=== PATIENT | male | born 1935 | race Caucasian/White ===

== ENCOUNTER 2016-07-20 16:29 | Inpatient (IN) | payer MEDICARE ==
[~2016-07-20] VITALS: Ht 170.2 cm; Wt 64.0 kg
--- NOTE | ~2016-07-20 | CON ---
[place], [place] REPORT OF CONSULTATION NAME: ABDULAZIZ GANN UNIT #: [id number] ROOM: 407 DOCTOR: DANNY DALY ED.D (DENNISE) BIRTHDATE: [birth year] DOS: 07/21/2016 HISTORY OF PRESENT ILLNESS: The patient is an 81-year-old male referred by Dr. Carrington for competency evaluation. At the present time, this patient is on the 4th floor at [facility]. His daughter, Faby Hunt, was present during the interview. The patient states he is and he has 3 daughters. He indicated that his just recently ; however, his daughter indicated she has been for over 7 years. He formerly worked at [employer] and also [employer] in [place]. He has been retired for many years. His family physician is Dr. Jeter. His medical history is pertinent for dementia, myocardial infarction, hypertension, encephalopathy, and a history of coronary artery bypass graft. His medications include aspirin, Cozaar, Risperdal, pravastatin, and Lopressor. He states that he does not drink any alcoholic beverages, but does admit to smoking 1 pack of cigarettes per day. This patient was awake, alert, and oriented to person only. He stated "he is presently here." I asked him where "here" was and he indicated he is at [employer]. I asked him if he was actually in the high school at this point in time and he indicated yes, he was in the [employer] at this time. I did indicate to him that he was actually in [facility] and he seemed somewhat surprised by this information even though he had an IV running and was clearly in a hospital. He has been quite confused for some time according to his daughter. He did not know that it was winter and he actually was aware of the year, but otherwise could answer no questions regarding any type of current events. His short-term memory was quite impaired. His long-term memory was fairly intact, however. In my opinion, it is clearly evident that this patient is not competent to make informed healthcare decisions. His daughter, Faby Hunt, is his power of regulatory attorney for healthcare and, in my opinion, all medical decisions should be made by his daughter. She states she did not bring the power of regulatory attorney into the hospital yet, but will bring it tomorrow. He is scheduled to go to [facility] in [place], [place] once he is discharged from the hospital. He had been living alone and it was clearly evident that he was not capable of living independently or making informed decisions. DIAGNOSIS: AXIS I: Major cognitive disorder -- Alzheimer's disease. Thank you very much for this consult. [place], [place] REPORT OF CONSULTATION NAME: SANJUANITAABDULAZIZ UNIT #: [id number] ROOM: 407 DOCTOR: DANNY DALY ED.D (DENNISE) BIRTHDATE: [birth year] DANNY DALY ED.D CM:CONSTR:REPORT OF CONSULTATION 08/29/16 1411 interface ABDULAZIZ CARRINGTON MD
--- NOTE | ~2016-07-20 | ST ---
[place], [place] EXERCISE STRESS TEST REPORT NAME: ABDULAZIZ GANN [facility] #: [id number] UNIT #: [id number] ROOM: 407 DOCTOR: ALEXANDER CHAMPAGNE MD BIRTHDATE: [birth year] DOS: 07/22/2016 PHARMACOLOGIC STRESS TEST Study was done and is being dictated on 07/22/2016. INDICATIONS: Central chest pain, history of coronary artery disease. PROCEDURE: The patient was given a rapid infusion of regadenoson 0.4 mg intravenously followed by a saline flush. He developed a headache, but had no other significant symptoms. The resting heart rate of 62 antonio to 73. The resting blood pressure of 164/60 fell to 122/64. His resting electrocardiogram showed sinus rhythm with a previous anterior infarction. Aside from tachycardia, no changes occurred with the infusion. IMPRESSION: 1. Well tolerated infusion of regadenoson. 2. Isotope injected 40 seconds after the infusion of regadenoson. Please see the separately dictated imaging report for further details of the patient's myocardial perfusion stress test results. ALEXANDER CHAMPAGNE MD CM:STRESS:EXERCISE STRESS TEST REPORT [id number] ALEXANDER CHAMPAGNE MD
--- NOTE | ~2016-07-20 | CON ---
[place] [employer], [place] REPORT OF CONSULTATION NAME: ABDULAZIZ GANN UNIT #: [id number] ROOM: 407 DOCTOR: ABDULAZIZ CARRINGTON MD BIRTHDATE: [birth year] DOS: 07/21/2016 PSYCHIATRIC CONSULTATION CHIEF COMPLAINT: "I guess I just wore out." HISTORY OF PRESENT ILLNESS: This is an 81-year-old white male who was admitted due to altered mental status. The patient was brought to the ER by his daughter because he was having increased visual hallucinations for several months. He had been seeing bugs and mice infesting his house. He also has been wandering and has been increasingly more confused per family report. His ADLs have been decreasing and he is requiring a lot more assistance in maintaining the house and his own personal state. The patient is becoming so confused that he has required almost 24-hour supervision at times. In the course of coming to the Emergency Room; however, he complained of chest pain and was brought to the medical unit for further stabilization. In discussing the case further with his daughter, she notes that he has also been confabulating stories about fights that are not occurring with family members. He has seen his in the house and his has been for over 6 years. He did state that he sees her sitting there in the room and at times flying over his head. He is becoming increasingly more bizarre as well. PAST MEDICAL HISTORY: Remarkable for hyperlipidemia, hypertension, myocardial infarction and a CABG in 2000. MENTAL STATUS: He is alert and oriented to person, select others place, but not necessarily time. Responses tended to be short and simple and at times very vague and evasive. He confabulated frequently in an order to fill in the gaps. He was guarded and suspicious and would not be forthcoming in discussing with me the state of affairs at home. DIAGNOSIS: Alzheimer dementia. PLAN: I will go ahead and order a vitamin D level along with a serum ammonia. Screening examinations already done by the hospitalist revealed that he has a low therapeutic vitamin B12 level, which I will go ahead and treat with vitamin B12 injection 1000 mcg IM today. I will start him on Exelon patch 4.6 mg a day to see if we can impact positively on ADLs, behavior and cognition. I will also have Dr. Adams Billingsley consulted for competency evaluation. He may benefit from a stay on the [facility] for further stabilization and possible placement into a long-term care facility. [place] [employer], [place] REPORT OF CONSULTATION NAME: ABDULAZIZ GANN UNIT #: [id number] ROOM: 407 DOCTOR: ABDULAZIZ CARRINGTON MD BIRTHDATE: [birth year] ABDULAZIZ CARRINGTON MD CM:CONSTR:REPORT OF CONSULTATION 0926 08/29/16 1413 interface
--- NOTE | ~2016-07-20 | PR ---
[place], [place] PROGRESS NOTE NAME: [facility]IZ [facility]ANN [id number] UNIT #: [id number] ROOM: 407 DOCTOR: ALEXANDER CHAMPAGNE MD BIRTHDATE: [birth year] DOS: 07/22/2016 CARDIOLOGY PROGRESS NOTE SUBJECTIVE: The patient was seen just prior to his stress test in the Cardiology Department. He has felt well overnight. He denies any further chest pain. I did review his echocardiogram yesterday and it does show normal left ventricular size and systolic function with an ejection fraction of 60%. He does have severe left ventricular diastolic relaxation abnormalities. The right ventricle appeared to be enlarged with right ventricular systolic pressures that could not be assessed. Probably moderate mitral insufficiency was seen. PHYSICAL EXAMINATION: VITAL SIGNS: On exam today, his pulse is 62 and regular, blood pressure is 164/60. He weighs 64 kilograms with a body mass index of 22.1. HEENT: Normocephalic, atraumatic. Extraocular muscles are intact. NECK: Supple. His carotids are full without bruits. LUNGS: Respirations are unlabored. Chest is clear to auscultation and percussion. HEART: Has a regular rhythm. He has a fourth heart sound, but no third heart sound. ABDOMEN: Benign. EXTREMITIES: Showed no edema. IMPRESSION: 1. Chest pain on admission, which appears to have resolved. The patient shows no signs of acute coronary ischemia. 2. History of coronary artery disease, status post bypass surgery approximately 15 years ago. 3. Hyperlipidemia. 4. Hypertension. 5. Chronic and ongoing cigarette abuse. 6. Dementia with behavioral abnormalities. PLAN: We will proceed with a pharmacologic stress test today to assess his prognosis. Given his other medical problems, it is assumed we will do our best to manage him medically. We thank the hospitalist group for asking our advice regarding his care. [place], [place] PROGRESS NOTE NAME: ABDULAZIZ GANN [facility] [id number] UNIT #: [id number] ROOM: 407 DOCTOR: ALEXANDER CHAMPAGNE MD BIRTHDATE: [birth year] ALEXANDER CHAMPAGNE MD CM:PNTRANS [id number] ALEXANDER CHAMPAGNE MD 07/23/16 0316 interface
[2016-07-20 16:29] VITALS: BP 189/76
[2016-07-20 17:05] LABS: BASO # 0.1 10*3/uL (0.0-0.1); BASO % 0.6 % (0.0-1.0); EOS # 0.4 10*3/uL (0.0-0.4); EOS % 4.5 % (1.0-4.0); HEMATOCRIT 40.8 % (42.0-52.0); HEMOGLOBIN 13.4 g/dl (14.0-18.0); LYMPH # 1.8 10*3/uL (1.3-4.4); LYMPH % 20.9 % (27.0-41.0); MEAN CELL VOLUME 96.2 fl (80.0-94.0); MEAN CORPUSCULAR HGB 31.6 pg (27.0-31.0); MEAN CORPUSCULAR HGB CONC 32.8 g/dl (33.0-37.0); MONO # 0.7 10*3/uL (0.1-1.0); NEUT # 5.6 10*3/uL (2.3-7.9); NEUT % 65.6 % (47.0-73.0); PLATELET COUNT AUTOMATED 196 10*3/uL (130-400); RED BLOOD COUNT 4.24 10*6/uL (4.50-5.90); WHITE BLOOD COUNT 8.5 10*3/uL (4.8-10.8)
[2016-07-20 17:18] LABS: BUN 25 mg/dl (7-24); CARBON DIOXIDE 26 mmol/L (21-32); CHLORIDE 108 mmol/L (98-107); EST GLOM FILT AFRICAN AMERICAN > 60 ml/min; GLUCOSE 92 mg/dL (65-99); POTASSIUM 4.6 mmol/L (3.5-5.1); SODIUM 143 mmol/L (136-145)
[2016-07-20 18:02] VITALS: BP 173/82
[2016-07-20] MEDS ORDERED: ASPIRIN325 M2 PO (18:33)
[2016-07-20] MEDS ORDERED: PRAVASTATIN SOD20 MG PO (18:33)
[2016-07-20] MEDS ORDERED: Lopressor25 MG PO (18:33)
[2016-07-20] MEDS ORDERED: LOSARTAN POTAS100 M1 PO (18:33)
[2016-07-20 18:41] VITALS: BP 181/73
[2016-07-20 19:06] VITALS: BP 166/76
[2016-07-20 19:12] VITALS: BP 166/66
[2016-07-20 20:00] VITALS: BP 179/53
[2016-07-20] MEDS ORDERED: COZAAR100 MG PO (20:04)
[2016-07-20] MEDS ORDERED: RISPERDAL0.25 MG PO (20:07)
[2016-07-21] VITALS: BP 171/72
[2016-07-21 00:55] LABS: CKMB 2.4 ng/ml (0.5-3.6)
[2016-07-21 04:17] LABS: BILIRUBIN NEGATIVE (NEGATIVE); BLOOD TRACE-INTACT (NEGATIVE); CLARITY SL CLOUDY (CLEAR); COLOR YELLOW (YELLOW); GLUCOSE NEGATIVE (NEGATIVE); KETONE NEGATIVE (NEGATIVE); LEUKO ESTERASE 1+ (NEGATIVE); NITRITE NEGATIVE (NEGATIVE); PROTEIN NEGATIVE (NEGATIVE); UROBILINOGEN 0.2 E.U./dl (0.2-1.0)
[2016-07-21 04:25] LABS: BACTERIA 2+; URINE REFLEX COMMENT YES (NO); WBC 31-40 wbc/hpf (0-5)
[2016-07-21 05:22] LABS: URINE AMPHETAMINES < 1000 (1000ng/ml); URINE BARBITURATES < 200 (200ng/ml); URINE COCAINE < 300 (300ng/ml)
[2016-07-21 05:59] LABS: BASO # 0.1 10*3/uL (0.0-0.1); BASO % 0.9 % (0.0-1.0); EOS # 0.4 10*3/uL (0.0-0.4); EOS % 5.5 % (1.0-4.0); HEMATOCRIT 35.6 % (42.0-52.0); HEMOGLOBIN 11.5 g/dl (14.0-18.0); LYMPH # 1.5 10*3/uL (1.3-4.4); LYMPH % 22.3 % (27.0-41.0); MEAN CELL VOLUME 96.7 fl (80.0-94.0); MEAN CORPUSCULAR HGB 31.3 pg (27.0-31.0); MEAN CORPUSCULAR HGB CONC 32.3 g/dl (33.0-37.0); MEAN PLATELET VOLUME 9.2 fl (9.6-12.3); MONO # 0.7 10*3/uL (0.1-1.0); MONO % 10.5 % (3.0-9.0); NEUT # 4.1 10*3/uL (2.3-7.9); NEUT % 60.4 % (47.0-73.0); PLATELET COUNT AUTOMATED 164 10*3/uL (130-400); RED BLOOD COUNT 3.68 10*6/uL (4.50-5.90); RED CELL DISTRI WIDTH 13.8 % (0-14.5); WHITE BLOOD COUNT 6.9 10*3/uL (4.8-10.8)
[2016-07-21 06:10] LABS: CKMB 2.5 ng/ml (0.5-3.6)
[2016-07-21 06:18] LABS: INTERNATIONAL NORM RATIO 1.1 (2.0-3.5); PROTHROMBIN TIME 11.2 SECONDS (9.0-12.4)
[2016-07-21 06:25] LABS: ALKALINE PHOSPHATASE 43 U/L (45-117); BILIRUBIN, TOTAL 0.5 mg/dl (0.2-1.0); BUN 23 mg/dl (7-24); CARBON DIOXIDE 28 mmol/L (21-32); CHLORIDE 109 mmol/L (98-107); EST GLOM FILT AFRICAN AMERICAN > 60 ml/min; GLUCOSE 85 mg/dL (65-99); POTASSIUM 4.9 mmol/L (3.5-5.1); SGOT/AST 13 IU/L (3-35); SGPT/ALT 14 U/L (12-78); SODIUM 145 mmol/L (136-145); TOTAL PROTEIN 5.6 gm/dL (6.4-8.2)
[2016-07-21 06:31] LABS: MAGNESIUM 2.4 mg/dL (1.5-2.1); THYROID STIM HORMONE (HS) 0.695 uIU/ml (0.358-4.75)
[2016-07-21 07:11] LABS: HEMOGLOBIN A1c 5.7 % (4.8-5.6)
[2016-07-21 08:00] VITALS: BP 156/62
[2016-07-21 08:31] LABS: FOLIC ACID 7.44 ng/mL (>5.38)
[2016-07-21 12:00] VITALS: BP 174/70
[2016-07-21 16:00] VITALS: BP 167/48
[2016-07-21 20:00] VITALS: BP 172/62
[2016-07-22] VITALS: BP 151/45
[2016-07-22 06:54] LABS: BASO % 0.6 % (0.0-1.0); EOS # 0.4 10*3/uL (0.0-0.4); EOS % 5.6 % (1.0-4.0); HEMATOCRIT 36.5 % (42.0-52.0); HEMOGLOBIN 11.8 g/dl (14.0-18.0); LYMPH # 1.6 10*3/uL (1.3-4.4); LYMPH % 23.5 % (27.0-41.0); MEAN CELL VOLUME 97.6 fl (80.0-94.0); MEAN CORPUSCULAR HGB 31.6 pg (27.0-31.0); MEAN CORPUSCULAR HGB CONC 32.3 g/dl (33.0-37.0); MEAN PLATELET VOLUME 9.5 fl (9.6-12.3); MONO # 0.7 10*3/uL (0.1-1.0); MONO % 9.9 % (3.0-9.0); NEUT # 4.1 10*3/uL (2.3-7.9); PLATELET COUNT AUTOMATED 171 10*3/uL (130-400); RED BLOOD COUNT 3.74 10*6/uL (4.50-5.90); RED CELL DISTRI WIDTH 13.8 % (0-14.5); WHITE BLOOD COUNT 6.8 10*3/uL (4.8-10.8)
[2016-07-22 08:00] VITALS: BP 140/68
[2016-07-22 12:00] VITALS: BP 136/72
[2016-07-22 16:00] VITALS: BP 134/69
[2016-07-22 20:00] VITALS: BP 152/60
[2016-07-23] VITALS: BP 134/88
[2016-07-23 08:00] VITALS: BP 184/60
[2016-07-23 12:00] VITALS: BP 160/58; BP 176/56
[2016-07-23] MEDS ORDERED: EXELON4.6 MG/24 T (13:37)
[2016-07-23] MEDS ORDERED: B12,B-12,B 12500 MC1 PO (13:40)
== END 2016-07-23 14:54 | disposition home health service (06) | DRG 682 ==
LOC: ED 16:29 → EDHOLD 18:22 → 4E 18:22
PROVIDERS: Emergency Medicine; Family Medicine; Student in an Organized Health Care Education/Training Program
DX: N17.0 Acute kidney failure with tubular necrosis (principal); G93.40 Encephalopathy, unspecified; E44.0 Moderate protein-calorie malnutrition; I11.0 Hypertensive heart disease with heart failure; I50.42 Chronic combined systolic (congestive) and diastolic (congestive) heart failure; N39.0 Urinary tract infection, site not specified; F02.81 Dementia in other diseases classified elsewhere, unspecified severity, with behavioral disturbance; R44.1 Visual hallucinations; E78.5 Hyperlipidemia, unspecified; F17.210 Nicotine dependence, cigarettes, uncomplicated; I16.0 Hypertensive urgency; D53.9 Nutritional anemia, unspecified; I25.10 Atherosclerotic heart disease of native coronary artery without angina pectoris; G30.9 Alzheimer's disease, unspecified; Z68.20 Body mass index [BMI] 20.0-20.9, adult; I25.2 Old myocardial infarction; Z95.1 Presence of aortocoronary bypass graft; Z82.0 Family history of epilepsy and other diseases of the nervous system; Z83.3 Family history of diabetes mellitus; Z82.69 Family history of other diseases of the musculoskeletal system and connective tissue; Z82.3 Family history of stroke

== ENCOUNTER 2019-02-08 19:24 | Emergency (ER) | payer MEDICARE ==
[~2019-02-08] VITALS: Ht 170.1 cm; Wt 77.1 kg
--- NOTE | ~2019-02-08 | EKG ---
[place], [place] ELECTROCARDIOGRAM REPORT NAME: ABDULAZIZ GANN UNIT #: [id number] ROOM: DOCTOR: EPIPHANY DRAFT REPORT BIRTHDATE: [birth year] [facility] Test Date: 2019-02-08 Test Time: 19:59:20 Pat Name: ABDULAZIZ GANN Department: Room: Gender: M Inside Account Representative: : 1935 Requested By: GENARO LATHAM Order Number: [id number] Reading MD: Candice Lidner Measurements Intervals [place] Rate: 73 P: 30 [place]: 182 QRS: 16 QRSD: 106 T: 52 QT: 400 QTc: 441 Interpretive Statements Sinus rhythm Anteroseptal infarct, old Baseline wander in lead(s) I,II,III,aVL,aVF Compared to ECG 01/01/2019 14:01:59 Myocardial infarct finding now present Left bundle-branch block no longer present Q waves no longer present Electronically Signed On 02-10-2019 8:57:15 PDT by Candice Linder CM:EKGRPT:ELECTROCARDIOGRAM REPORT [id number] GENARO LATHAM MD [facility] GENARO LATHAM MD
[~2019-02-08 19:24] MED LIST: AMLODIPINE BESY10 MG PO; ASPIR 8181 MG PO; B12,B-12,B 12500 MC1 PO; COZAAR100 MG PO; DEPAKOTE250 MG PO; DIVALPROEX SOD250 MG PO; EXELON4.6 MG/24 T; KLONOPIN0.5 MG PO; LOSARTAN POTAS100 M1 PO; Lopressor25 MG PO; MEMANTINE HCL10 MG PO; MIRTAZAPINE15 M2 PO; PRAVASTATIN SOD20 MG PO; RISPERDAL0.25 MG PO; RISPERIDONE0.25 M2 PO; RIVASTIGMINE T4.5 M1 PO; RIVASTIGMINE TAR3 M1 PO; VITAMIN D50000 UNIT PO
[2019-02-08 20:06] LABS: BASO # 0.1 10*3/uL (0.0-0.1); BASO % 1.2 % (0.0-1.0); EOS # 1.3 10*3/uL (0.0-0.4); EOS % 11.9 % (1.0-4.0); HEMATOCRIT 38.9 % (42.0-52.0); HEMOGLOBIN 12.3 g/dl (14.0-18.0); LYMPH # 1.9 10*3/uL (1.3-4.4); LYMPH % 18.1 % (27.0-41.0); MEAN CELL VOLUME 99.2 fl (80.0-94.0); MEAN CORPUSCULAR HGB 31.4 pg (27.0-31.0); MEAN CORPUSCULAR HGB CONC 31.6 g/dl (33.0-37.0); MEAN PLATELET VOLUME 9.7 fl (9.6-12.3); MONO % 9.6 % (3.0-9.0); NEUT % 57.6 % (47.0-73.0); PLATELET COUNT AUTOMATED 197 10*3/uL (130-400); RED BLOOD COUNT 3.92 10*6/uL (4.50-5.90); RED CELL DISTRI WIDTH 15.1 % (0-14.5); WHITE BLOOD COUNT 10.5 10*3/uL (4.8-10.8)
[2019-02-08 20:08] LABS: BILIRUBIN NEGATIVE (NEGATIVE); BLOOD NEGATIVE (NEGATIVE); CLARITY CLEAR (CLEAR); COLOR YELLOW (YELLOW); GLUCOSE NEGATIVE (NEGATIVE); KETONE NEGATIVE (NEGATIVE); LEUKO ESTERASE NEGATIVE (NEGATIVE); NITRITE NEGATIVE (NEGATIVE); SPECIFIC GRAVITY 1.025 (1.005-1.030); UROBILINOGEN 0.2 E.U./dl (0.2-1.0)
[2019-02-08 20:18] LABS: BACTERIA TRACE; RBC 0-2 rbc/hpf (0-2)
[2019-02-08 20:24] LABS: ALBUMIN 3.3 gm/dl (3.1-4.5); ALKALINE PHOSPHATASE 176 U/L (45-117); BUN 47 mg/dl (7-24); CHLORIDE 112 mmol/L (98-107); CREATININE 2.07 mg/dL (0.70-1.30); LIPASE 322 U/L (73-393); POTASSIUM 4.5 mmol/L (3.5-5.1); SGOT/AST 55 IU/L (3-35); SGPT/ALT 102 U/L (12-78); SODIUM 144 mmol/L (136-145); TOTAL PROTEIN 6.7 gm/dL (6.4-8.2)
[2019-02-08 20:26] LABS: TROPONIN I < 0.015 ng/ml (<0.045)
== END 2019-02-08 22:07 | disposition home or self-care (01) ==
LOC: ED 19:24
PROVIDERS: Emergency Medicine Emergency Medical Services
DX: M25.551 Pain in right hip (principal); M54.2 Cervicalgia; G31.83 Neurocognitive disorder with Lewy bodies; F02.81 Dementia in other diseases classified elsewhere, unspecified severity, with behavioral disturbance; R63.0 Anorexia; I25.10 Atherosclerotic heart disease of native coronary artery without angina pectoris; E78.5 Hyperlipidemia, unspecified; I25.2 Old myocardial infarction; I11.0 Hypertensive heart disease with heart failure; I50.40 Unspecified combined systolic (congestive) and diastolic (congestive) heart failure; F17.210 Nicotine dependence, cigarettes, uncomplicated; Z88.6 Allergy status to analgesic agent; Z79.899 Other long term (current) drug therapy; Z95.1 Presence of aortocoronary bypass graft; Z79.82 Long term (current) use of aspirin; W19.XXXA Unspecified fall, initial encounter; Y93.89 Activity, other specified; Y92.128 Other place in nursing home as the place of occurrence of the external cause; Y99.8 Other external cause status

== ENCOUNTER 2019-04-28 02:54 | Emergency (ER) | payer MEDICARE ==
[~2019-04-28] VITALS: Ht 167.6 cm; Wt 64.0 kg
== END 2019-04-28 05:36 | disposition other institution (70) ==
LOC: ED 02:54
DX: S46.811A Strain of other muscles, fascia and tendons at shoulder and upper arm level, right arm, initial encounter (principal); G31.83 Neurocognitive disorder with Lewy bodies; F02.80 Dementia in other diseases classified elsewhere, unspecified severity, without behavioral disturbance, psychotic disturbance, mood disturbance, and anxiety; I25.10 Atherosclerotic heart disease of native coronary artery without angina pectoris; E78.5 Hyperlipidemia, unspecified; I10 Essential (primary) hypertension; F17.210 Nicotine dependence, cigarettes, uncomplicated; Z95.1 Presence of aortocoronary bypass graft; Z79.82 Long term (current) use of aspirin; Z79.899 Other long term (current) drug therapy; Z88.5 Allergy status to narcotic agent; W18.30XA Fall on same level, unspecified, initial encounter; Y93.89 Activity, other specified; Y92.89 Other specified places as the place of occurrence of the external cause; Y99.9 Unspecified external cause status